=== PATIENT | male | born 1960 ===

== ENCOUNTER → 2023-07-02 11:14 | Outpatient (REF) | payer BC, SELFPAY | LOC: DHCBC HW 11:14 | PROVIDERS: ATTENDING PHYSICIAN Internal Medicine Cardiovascular Disease; FAMILY PHYSICIAN Internal Medicine | DX: I25.10 Atherosclerotic heart disease of native coronary artery without angina pectoris (principal); Z95.3 Presence of xenogenic heart valve | CPT/HCPCS: 93306 ==

== ENCOUNTER 2023-10-16 23:04 | Inpatient (IN) | payer MEDICARE, BC, SELFPAY ==
[2023-10-16 19:22] VITALS: BP 135/89
[2023-10-16 19:38] VITALS: BMI 26.2
--- NOTE | 2023-10-16 19:52 | ED.GENMED ---
History of Present Illness
<JUAN Galeana - Last Filed: 10/16/23 22:23>
General
Chief Complaint: Abdominal Pain
Source: patient
Exam Limitations: none
Time Seen by Provider: 10/16/23 19:41
Travel History
Have you had any contact with someone who has COVID-19?: No
Do you have any symptoms of coronavirus? Fever > 100 degrees, chills, cough, shortness of breath, sore throat, loss of taste or smell, muscle aches, or headache?: No
History of Present Illness
History of Present Illness:
This is a 63 year old male that comes in with c/o abd pain. States that around 3-3:30pm he was driving and he started with abd pain. States that the pain was so bad that he started to Hyperventilate and he had to gizzard puller as he thought he was going
to pass out. States that he went home and laid down and he then had chills for 2 hours. States that the pain was then gone. States that he has chronic back pain and he has lower back pain at this time. States that he did feel SOB earlier and he
did vomit. Denies any fever, chest pain, nausea, diarrhea, headache, dizziness, urinary burning.
Past History
<JUAN Galeana - Last Filed: 10/16/23 22:23>
Past History
ED Past Medical History: CAD, GERD, HTN, Hypercholesterolemia and Other (Low back pain)
ED Past Surgical History: Cardiac (Open heart for valve replacement Pig valve. ), Orthopedic (Right Achilles, Right knee repair X 2, ), Tonsilectomy and Other (Rhinoplasty)
Social History
Tobacco: Non-smoker
Alcohol: Occasional
Personal:
Living: with family
Review of Systems
<JUAN Galeana - Last Filed: 10/16/23 22:23>
Review of Systems
All Other Systems: ROS reviewed and negative except as documented in HPI and ROS
Constitutional: Reports chills; Denies fever
EENT: Reports no symptoms
Respiratory: Reports trouble breathing; Denies cough
Cardiac: Reports no symptoms; Denies chest pain
ABD/GI: Reports abdominal pain and vomiting; Denies nausea or diarrhea
Musculoskeletal: Reports back pain (Low back pain)
Skin: Reports no symptoms
Neurological: Reports no symptoms; Denies dizzy or headache
Psychiatric: Reports no symptoms
Phy Exam
<JUAN Galeana - Last Filed: 10/16/23 22:23>
General Physical Exam
General Presentation: no apparent distress
General age: appears stated age
General Skin: warm and dry
General Habitus: normal
General Mental: alert
General Hydration: appears well hydrated
ENT Exam
ENT Exam: TM's normal, pharynx normal and neck supple
Eye Exam
Eye Exam: EOMI
Cardiovascular Exam
Cardiovascular Exam: regular rate/rhythm, no edema, no murmur and normal peripheral pulses
Pulmonary Exam
Pulmonary Exam: lungs clear, no respiratory distress, no rales, chest non tender, no crackles, no rhonchi, no wheezing and no cough
Gastrointestinal Exam
Gastrointestinal Exam: normal bowel sounds, non tender, soft, no organomegaly, no pulsatile mass and non distended
Musculoskeletal Exam
Musculoskeletal Exam: full ROM and no edema
Skin Exam
Skin Exam: normal color, warm/dry, no rash and no petechia
Psychiatric Exam
Psychiatric Exam: normal mood/affect
Course
<JUAN Galeana - Last Filed: 10/16/23 22:23>
Orders/Labs/Results
Orders:
Orders
10/16/23 19:43
COVID-19 Antigen Urgent
Source: Nasal Swab
Complete Blood Count/With Diff Urgent
Comprehensive Metabolic Panel Urgent
Direct Bilirubin Urgent
Comment: ADD ON
Lactate Level [Lactic Acid] Q4H
Lipase Urgent
Comment: ADD ON
Influenza A+B Rapid Molecular Urgent
ALEXIS Source: Nasal Swab
Specimen Description:
10/16/23 19:50
0.9% Sodium Chloride 1000 ml [Nss] 1,000 ml IV BOLUS
Ketorolac [Toradol] 30 mg IV NOW STA
10/16/23 19:51
CT Abd/pelvis W Iv Cont Urgent
Comment:
Reason For Exam: abd pain
10/16/23 19:53
Blood Culture Q30M
ALEXIS Source: Blood/Venous
Specimen Description:
10/16/23 19:58
Add On- LAB Urgent
Tests Added?: lipase
10/16/23 20:11
Add On- LAB Urgent
Tests Added?: Direct socrates
10/16/23 20:19
Urinalysis Reflex To Culture Urgent
Date Specimen was Collected: 10/16/23
Time Specimen was Collected: 20:18
10/16/23 20:58
US Abdomen Limited Urgent
Comment:
Reason For Exam: Upper abd pain
10/16/23 21:10
Vital Signs- Treatment ONCE
Frequency: Once
10/16/23 21:25
Piperacillin/Tazo 3.375 Gram [Zosyn] 3.375 gram in 50 ml IV NOW
10/16/23 21:56
Blood Culture Q30M
ALEXIS Source: Blood/Venous
Specimen Description:
Abnormal Lab Results
10/16/23 10/16/23
19:43 20:19
WBC 12.8 H 10^3/uL
(4.8-10.8)
RBC 4.36 L 10^6/uL
(4.70-6.10)
MCH 31.4 H pg
(27.0-31.0)
Absolute Neuts (auto) 11.3 H 10^3/uL
(1.4-6.5)
Absolute Lymphs (auto) 0.6 L 10^3/uL
(1.2-3.4)
Absolute Monos (auto) 0.9 H 10^3/uL
(0.1-0.6)
Neutrophils % 88.2 H %
(42.2-75.2)
Lymphocytes % 4.5 L %
(20.5-51.1)
Glucose 163 H mg/dl
(70-99)
Total Bilirubin 2.2 H mg/dl
(0.2-1.3)
Direct Bilirubin 1.3 H mg/dl
(0.0-0.4)
AST 687 H* U/L
(17-59)
ALT 457 H U/L
(0-50)
Alkaline Phosphatase 154 H U/L
(38-126)
Urine Urobilinogen 2+ A
(Neg - 1+)
10/16/23 19:43
10/16/23 19:43
Leukocytosis, Glucose nonfasting. Total socrates elevated. Direct socrates elevation. AST/ALT elevation and alk phos elevation. Urine negative for infection. COVID and Influenza negative. Lactic acid normal at 1.2, Lipase normal at 114, Urine negative for
infection.
Vital Signs
Initial and Last Documented VS:
Initial Vital Signs
Temp Pulse Resp BP Pulse Ox
100.6 F H 92 18 135/89 98
10/16/23 19:22 10/16/23 19:22 10/16/23 19:22 10/16/23 19:22 10/16/23 19:22
Last Documented Vital Signs
Temp Pulse Resp BP Pulse Ox
98.9 F 82 18 131/68 99
10/16/23 21:41 10/16/23 21:41 10/16/23 19:22 10/16/23 21:41 10/16/23 21:41
<Tejinder Joe, DO - Last Filed: 10/16/23 21:12>
Orders/Labs/Results
Orders:
Orders
10/16/23 19:43
COVID-19 Antigen Urgent
Source: Nasal Swab
Complete Blood Count/With Diff Urgent
Comprehensive Metabolic Panel Urgent
Direct Bilirubin Urgent
Comment: ADD ON
Lactate Level [Lactic Acid] Q4H
Lipase Urgent
Comment: ADD ON
Influenza A+B Rapid Molecular Urgent
ALEXIS Source: Nasal Swab
Specimen Description:
10/16/23 19:50
0.9% Sodium Chloride 1000 ml [Nss] 1,000 ml IV BOLUS
Ketorolac [Toradol] 30 mg IV NOW STA
10/16/23 19:51
CT Abd/pelvis W Iv Cont Urgent
Comment:
Reason For Exam: abd pain
10/16/23 19:53
Blood Culture Q30M
ALEXIS Source: Blood/Venous
Specimen Description:
10/16/23 19:58
Add On- LAB Urgent
Tests Added?: lipase
10/16/23 20:11
Add On- LAB Urgent
Tests Added?: Direct socrates
10/16/23 20:19
Urinalysis Reflex To Culture Urgent
Date Specimen was Collected: 10/16/23
Time Specimen was Collected: 20:18
10/16/23 20:58
US Abdomen Limited Urgent
Comment:
Reason For Exam: Upper abd pain
10/16/23 21:10
Vital Signs- Treatment ONCE
Frequency: Once
10/16/23 21:25
Piperacillin/Tazo 3.375 Gram [Zosyn] 3.375 gram in 50 ml IV NOW
10/16/23 21:56
Blood Culture Q30M
AL[facility]IS Source: Blood/Venous
Specimen Description:
Abnormal Lab Results
10/16/23 10/16/23
19:43 20:19
WBC 12.8 H 10^3/uL
(4.8-10.8)
RBC 4.36 L 10^6/uL
(4.70-6.10)
MCH 31.4 H pg
(27.0-31.0)
Absolute Neuts (auto) 11.3 H 10^3/uL
(1.4-6.5)
Absolute Lymphs (auto) 0.6 L 10^3/uL
(1.2-3.4)
Absolute Monos (auto) 0.9 H 10^3/uL
(0.1-0.6)
Neutrophils % 88.2 H %
(42.2-75.2)
Lymphocytes % 4.5 L %
(20.5-51.1)
Glucose 163 H mg/dl
(70-99)
Total Bilirubin 2.2 H mg/dl
(0.2-1.3)
Direct Bilirubin 1.3 H mg/dl
(0.0-0.4)
AST 687 H* U/L
(17-59)
ALT 457 H U/L
(0-50)
Alkaline Phosphatase 154 H U/L
(38-126)
Urine Urobilinogen 2+ A
(Neg - 1+)
10/16/23 19:43
10/16/23 19:43
Vital Signs
Initial and Last Documented VS:
Initial Vital Signs
Temp Pulse Resp BP Pulse Ox
100.6 F H 92 18 135/89 98
10/16/23 19:22 10/16/23 19:22 10/16/23 19:22 10/16/23 19:22 10/16/23 19:22
Last Documented Vital Signs
Temp Pulse Resp BP Pulse Ox
98.9 F 82 18 131/68 99
10/16/23 21:41 10/16/23 21:41 10/16/23 19:22 10/16/23 21:41 10/16/23 21:41
<JUAN Galeana - Last Filed: 10/16/23 22:23>
MDM/Problems Addressed
Differential Diagnosis Includes:
Diverticulitis, colitis, Pancreatitis, UTI
MDM/Problems Addressed:
This is a 63 year old male that comes in with c/o abd pain and then chills. States that this started at 3-3:30pm and he was driving and had to gizzard puller as he started to hyperventilate and thought he was going to pass out.
Will get labs, CT abd, give IV fluids an medicate for his back pain.
Back into see patient. Explained that he would be admitted as his liver enzymes are elevated and the CT shows that he has gallstones with wall thickening. Will start on antibiotics and admit.
Chronic conditions affecting care:
NA
Acute Exacerbation and/or Progression of Chronic Illness:
NA
<JUAN Galeana - Last Filed: 10/16/23 22:23>
*Radiology
Radiology exam reviewed: radiology read reviewed (CT-There is cholelithiasis with mild hazy pericholecystic inflammatory stranding suggesting possible Cholecystitis. Imaging for bowel pathology is limited by the lack of enteric contrast. It there is
clinical suspicion for bowel pathology, this study could be repeated with enteric contrast and 4 ) and other (CT cont-hour delay. Diverticuli are present in the colon US-Cholelithiasis)
*Pulse Oximetry
Patient hypoxic: no
*EKG
Interpreted by ED Provider?: NA
Rate: EKG- N/A
*Press Operator Assistant Interpretation
Rate: Press Operator Assistant- N/A
*Critical Care Note
Total Time (30-74mins, 75-104mins- exclusive of procedures): Not Applicable
ED Attending Note
<JUAN Galeana - Last Filed: 10/16/23 22:23>
-
Portions of this chart may have been created with voice recognition software.� Occasional wrong word or��sound alike� substitutions may have occurred due to the inherent limitations of voice recognition software.
<Tejinder Joe DO - Last Filed: 10/16/23 21:12>
ED Attending Note
Patient seen and examined by attending physician: Yes
I performed the substantive portion of visit, reviewed & personally made and approve the management plan that is documented in note by myself or STEVE.: Yes
ED Attending Note:
63-year-old male who presents with abdominal pain and chills. Found to have abnormal LFTs, leukocytosis and right upper quadrant pain. Concern for ascending cholangitis. CT imaging reviewed by me and suspicious for pericholecystic inflammatory
changes. Await radiology final reading. Exam: Positive Thompson's. No distention. Febrile.
A/P: ascending cholangitis. abx. admit
Discharge Plan
Departure
Patient Disposition: Admit
Date of Disposition: 10/16/23
Time of Disposition: 21:28
Admit to: Med/Surg
Presentation/result/management discussed w/ accepting MD/DO: Hospitalist
Patient with high blood pressure during this ER visit?: Yes
Condition: Good
Covid-19: Not Applicable
Discharge Problem:
Elevated liver enzymes, Cholelithiasis with acute cholecystitis
Prescriptions:
No Action
ibuprofen 800 mg Tablet
800 mg PO HSPRN PRN (Reason: sleep)
tetrahydrozoline [Visine] 0.05 % Drops
2 - 3 drp BOTH EYES DAILYPRN PRN (Reason: allergies)
aspirin 81 mg Tablet,Delayed Release (Dr/Ec)
81 mg PO DAILY
esomeprazole magnesium 40 mg capsule,delayed release(DR/EC)
40 mg PO DAILY
calcium carbonate [Tums] 200 mg calcium (500 mg) Tablet,Chewable
200 - 400 mg PO DAILYPRN PRN (Reason: upset stomach)
metoprolol succinate 25 mg tablet extended release 24 hr
25 mg PO DAILY
rosuvastatin 40 mg tablet
40 mg PO DAILY
Referrals:
Ruthann Luque DO [Family Provider] -
Interventions
Interventions:
*Risk Screen - Suicide Last Done: 10/16/23 20:26
*General Assessment Last Done: 10/16/23 19:22
*Neglect/Abuse Screening Last Done: 10/16/23 20:26
HH-Znjzzz-Mqioqhjdwd Assessment Last Done: 10/16/23 19:47
Discharge Date and Time
Print Language: ITALIAN
[2023-10-16 19:53] LABS: % Basophils 0.2 % (0-2); % Eosinophils 0.2 % (0-6); % Immature Granulocytes 0.2 % (0-0.5); % Lymphocytes 4.5 % (20.5-51.1); % Monocytes 6.7 % (1.7-9.3); % Neutrophils 88.2 % (42.2-75.2); Absolute Lymphocytes 0.6 10^3/uL (1.2-3.4); Absolute Monocytes 0.9 10^3/uL (0.1-0.6); Absolute Neutrophils 11.3 10^3/uL (1.4-6.5); Hematocrit 39.3 % (39.0-52.0); Hemoglobin 13.7 g/dL (13.0-18.0); Mean Corp Hgb Conc. 34.9 g/dL (33.0-37.0); Mean Corpuscular Hgb 31.4 pg (27.0-31.0); Mean Corpuscular Volume 90.1 fL (80.0-94.0); Mean Platelet Volume 9.7 fL (7.4-10.4); Nucleated Red Blood Cells % 0 % (-); Platelet Count 163 10^3/uL (130-400); Red Blood Cell Count 4.36 10^6/uL (4.70-6.10); Red Cell Dist. Width 13.1 % (11.5-14.5); White Blood Cell Count 12.8 10^3/uL (4.8-10.8)
[2023-10-16] MEDS: TORADOL 30 MG IV (19:54)
[2023-10-16] MEDS: NSS 1000 IV ×2 (19:55→23:49)
[2023-10-16 20:07] LABS: Lactic Acid 1.2 mmol/L (0.7-2.0)
[2023-10-16 20:09] LABS: COVID-19 Antigen Negative (Negative)
[2023-10-16 20:10] LABS: ALT (SGPT) 457 U/L (0-50); AST (SGOT) 687 U/L (17-59); Albumin 4.2 g/dl (3.5-5.0); Alkaline Phosphatase 154 U/L (38-126); Blood Urea Nitrogen 18 mg/dl (9-20); Calcium 9.6 mg/dl (8.4-10.2); Carbon Dioxide 28 mmol/L (22-30); Chloride 100 mmol/L (98-107); Estimated Creatinine Clearance 67 ml/min; Glucose 163 mg/dl (70-99); Sodium 136 mmol/L (135-145); Total Bilirubin 2.2 mg/dl (0.2-1.3); Total Protein 7.1 g/dl (6.3-8.2); eGFR > 60.00
[2023-10-16 20:26] LABS: Urine Albumin Trace (Neg - Trace); Urine Bilirubin Negative (Negative); Urine Color Yellow; Urine Glucose Negative (Negative); Urine Ketone Negative (Negative); Urine Leukocyte Negative (Negative); Urine Nitrite Negative (Negative); Urine Occult Blood Negative (Negative); Urine Urobilinogen 2+ (Neg - 1+)
[2023-10-16 20:27] LABS: Urine Character Clear (Clear)
[2023-10-16 20:29] LABS: Direct Bilirubin 1.3 mg/dl (0.0-0.4); Lipase 114 U/L (23-300)
[2023-10-16 21:41] VITALS: BP 131/68
[2023-10-16] MEDS: ZOSYN 50 IV (22:13)
--- NOTE | 2023-10-16 22:57 | HPS.HSE ---
Addendum entered and electronically signed by Brenden Worthington DO 10/16/23 23:19:
Patient seen and examined independently. Agree with findings and plan as set forth by Yana Bains PA-C.
Patient is a 63y M with PMH significant for ASCVD and hypertension who presents to ED complaining of abdominal pain with N/V. Patient states that symptoms started this AM. He reports pain in the RUQ area with 2 episodes of emesis and subjective
chills. He presented for further evaluation and treatment and is noted to have low-grade fever, abnormal LFTs and imaging c/w gallstones.
Ass:
Cholelithiasis and Probable Acute Cholecystitis
ASCVD
Benign Hypertension
Plan:
Admit for further evaluation and treatment.
NPO, IVFs, IV abx, etc.
Surgery evaluation for probable cholecystectomy.
Follow for improvement in LFTs.
Original Note:
Family Physician
-
Family Physician: Ruthann Luque DO
Chief Complaint
-
Abdominal Pain
History of Present Illness
This is a 63 year old male with past medical history of CAD, hypertension and hyperlipidemia who presents to the emergency department with abdominal pain and chills. The patient reports he started experiencing abdominal pain this morning. He reports
his abdominal pain worsened this afternoon and he started experiencing chills, shortness of breath, and vomited twice, prompting him to present to the emergency department. Upon arrival, the patient was found to have a fever of 100.6F. He denies
diarrhea and chest pain. He denies prior similar episodes.
Medical History
Past Medical History
Past Medical History: Reports Other
Additional Past Medical History:
Coronary Artery Disease s/p CABG
Essential Hypertension
Hyperlipidemia
GERD
Past Surgical History: Reports Other
Additional Past Surgical History:
Bioprosthetic Mitral Valve Replacement
CABG
Right Achilles Surgery
Right Knee Repair x 2
Rhinoplasty
Tonsillectomy
Social History
Tobacco: Non-smoker
Alcohol: Occasional
Family History
Family History: Not pertinent
Allergies / Home Medications
Allergies reflects when Allergies were last updated in [facility].
Home Medications with original date entered in [facility]
Allergy/Medication List:
Allergies
Allergy/AdvReac Type Severity Reaction Status Date / Time
No Known Allergies Allergy Unverified 10/16/23 19:26
Home Medications
aspirin 81 mg tablet,delayed release 81 mg PO DAILY 10/16/23
calcium carbonate (Tums) 200 - 400 mg PO DAILYPRN PRN upset stomach 10/16/23
esomeprazole magnesium 40 mg capsule,delayed release 40 mg PO DAILY 10/16/23
ibuprofen 800 mg tablet 800 mg PO HSPRN PRN sleep 10/16/23
metoprolol succinate 25 mg tablet,extended release 24 hr 25 mg PO DAILY 10/16/23
rosuvastatin 40 mg tablet 40 mg PO DAILY 10/16/23
tetrahydrozoline 0.05 % eye drops (Visine) 2 - 3 drp BOTH EYES DAILYPRN PRN allergies 10/16/23
Review of Systems
-
A 12 point ROS was completed and negative except as noted: Yes
Constitutional: Reports Fever and Chills
Respiratory: Denies Cough or Trouble Breathing
Cardiac: Denies Chest Pain or Palpitations
Physical Exam
Vital Signs
Vital Signs
Temp Pulse Resp BP Pulse Ox
98.9 F 82 18 131/68 99
10/16/23 21:41 10/16/23 21:41 10/16/23 19:22 10/16/23 21:41 10/16/23 21:41
Physical Exam
General: Comfortable and Conversant
HEENT: Anicteric and Moist mucous membranes
Respiratory: Clear and Non Labored Respirations
Cardiac: S1/S2 and Regular Rhythm
GI: Soft, Non Distended and Tender (Mild Right Lower Quadrant; Moderate in Right Upper Quadrant with Positive Thompson's Sign)
Musculoskeletal: No Clubbing, No Cyanosis and No Edema
Skin: Warm and Dry
Neuro: Awake, Alert, Oriented and Nonfocal/grossly intact
Laboratory Results
-
10/16/23 19:43
10/16/23 19:43
Laboratory Results
Lactic Acid Cancelled 10/16/23 23:45
Total Bilirubin 2.2 mg/dl (0.2-1.3) H 10/16/23 19:43
AST 687 U/L (17-59) H* 10/16/23 19:43
ALT 457 U/L (0-50) H 10/16/23 19:43
Alkaline Phosphatase 154 U/L (38-126) H 10/16/23 19:43
Lipase 114 U/L (23-300) 10/16/23 19:43
Data Reviewed
-
CT Scan: Report Reviewed by me
Ultrasound: Report Reviewed by me
Lab Data: Labs Reviewed by me
Impression/Plan
-
Sepsis secondary to Acute Cholecystitis
-Consult Surgery
-Continue Zosyn
-Suspect elevated LFTs related to a passed gallstone - Recheck LFTs in AM - Consider GI consult in AM if not trending downward
Coronary Artery Disease s/p CABG
-Hold Aspirin for possible OR
Essential Hypertension
-Continue Metoprolol with hold parameters
Hyperlipidemia
-Hold statin
DVT proph: SCDs
Code Status: Full Code
[2023-10-16] MEDS: DILAUDID 0.5 MG IV (23:00)
[2023-10-16 23:12] VITALS: BP 130/68
[2023-10-16 23:43] VITALS: BP 128/67; BMI 26.2
--- NOTE | 2023-10-17 | PTCARENOTE ---
Received patient via stretcher accompanied by ED RN. Patient ambulated self from stretcher to bed without difficulty. Nursing assessment completed and as documented. Oriented to room/facility, instructed use of call ring and within reach, VSS,
continue with current care plan.
[2023-10-17] MEDS: ZOSYN 50 IV ×4 (03:36→21:28)
[2023-10-17 06:00] VITALS: BMI 26.2
[2023-10-17 06:31] LABS: Hematocrit 36.2 % (39.0-52.0); Hemoglobin 12.6 g/dL (13.0-18.0); Mean Corp Hgb Conc. 34.8 g/dL (33.0-37.0); Mean Corpuscular Hgb 31.7 pg (27.0-31.0); Mean Platelet Volume 10.3 fL (7.4-10.4); Platelet Count 149 10^3/uL (130-400); Red Blood Cell Count 3.98 10^6/uL (4.70-6.10); Red Cell Dist. Width 13.2 % (11.5-14.5); White Blood Cell Count 10.7 10^3/uL (4.8-10.8)
[2023-10-17 06:58] LABS: ALT (SGPT) 566 U/L (0-50); AST (SGOT) 527 U/L (17-59); Albumin 3.3 g/dl (3.5-5.0); Alkaline Phosphatase 147 U/L (38-126); Blood Urea Nitrogen 16 mg/dl (9-20); Calcium 8.5 mg/dl (8.4-10.2); Carbon Dioxide 26 mmol/L (22-30); Chloride 104 mmol/L (98-107); Estimated Creatinine Clearance 61 ml/min; Glucose 89 mg/dl (70-99); Sodium 137 mmol/L (135-145); Total Bilirubin 4.2 mg/dl (0.2-1.3); Total Protein 5.9 g/dl (6.3-8.2); eGFR > 60.00
[2023-10-17 07:00] VITALS: BP 136/85
--- NOTE | 2023-10-17 07:43 | CON.GS ---
Consultation
-
Reason for Consultation: Abdominal pain, elevated LFTs
Medical History
-
Chief Complaint: Abdominal pain
History of Present Illness:
Patient is a 63-year-old male who was in his usual baseline state of health until yesterday when he developed the acute onset of upper abdominal pain with nausea and anorexia. He induced vomiting once but his symptoms persisted prompting emergency
department evaluation. Shortly after presenting to the emergency department his pain improved but it did return again mildly overnight. It was relieved with narcotics.
Similar episode about a year ago but he waited it out at home and his symptoms improved after 2 to 3 days.
Past Medical History
Past Medical History: Other (CAD, hypertension, GERD, hypercholesterolemia)
Past Surgical History: Other (Repair of Achilles tendon, CABG with bioprosthetic mitral valve replacement)
Social History
Tobacco: Non-Smoker
Alcohol: Occasional
Family History
Family History: Other (First-degree relatives have had cholecystectomy for gallstone related disease)
Allergies / Home Medications
Allergy/AdvReac Type Severity Reaction Status Date / Time
No Known Allergies Allergy Unverified 10/16/23 19:26
�Medication �Instructions �Recorded �Confirmed �Type
aspirin 81 mg tablet,delayed 81 mg PO DAILY Blood Clot 10/16/23 10/16/23 History
release Prevention/Tx
calcium carbonate (Tums) 200 - 400 mg PO DAILYPRN PRN upset 10/16/23 10/16/23 History
stomach
esomeprazole magnesium 40 mg 40 mg PO DAILY Gastrointestinal 10/16/23 10/16/23 History
capsule,delayed release Issue
ibuprofen 800 mg tablet 800 mg PO HSPRN PRN sleep 10/16/23 10/16/23 History
metoprolol succinate 25 mg 25 mg PO DAILY Heart Failure 10/16/23 10/16/23 History
tablet,extended release 24 hr
rosuvastatin 40 mg tablet 40 mg PO DAILY Gastrointestinal 10/16/23 10/16/23 History
Issue
tetrahydrozoline 0.05 % eye drops 2 - 3 drp BOTH EYES DAILYPRN PRN 10/16/23 10/16/23 History
(Visine) allergies
Review of Systems
-
History Source: Patient
All other systems: Negative unless noted
A 10 point review of systems was completed, and was negative except as per HPI.
Physical Exam
Vital Signs
Temp Pulse Resp BP Pulse Ox
99.4 F 74 16 128/67 96
10/16/23 23:43 10/16/23 23:43 10/16/23 23:43 10/16/23 23:43 10/17/23 00:03
10/16/23 10/17/23 10/18/23
06:59 06:59 06:59
Actual Weight 80.467 kg
Body Mass Index (BMI) 26.2
Lab Results
10/17/23 05:36
10/17/23 05:36
WBC 10.7 10^3/uL (4.8-10.8) 10/17/23 05:36
Hgb 12.6 g/dL (13.0-18.0) L 10/17/23 05:36
Hct 36.2 % (39.0-52.0) L 10/17/23 05:36
Plt Count 149 10^3/uL (130-400) 10/17/23 05:36
Abs Immat Gran (auto) 0.0 10^3/uL (0-0.05) 10/16/23 19:43
Neutrophils % 88.2 % (42.2-75.2) H 10/16/23 19:43
Physical Exam
General: Well Developed, Well Nourished, No Apparent Distress, Comfortable and Other (Sleeping in hospital bed but easily awoke for evaluation/examination)
HEENT: Normocephalic, Anicteric and Moist Mucous Membranes
Respiratory: Non Labored Respirations
Cardiac: Regular Rhythm
GI: Soft, Non Distended, Normal Bowel Sounds and Tender (Slight epigastric tenderness and right upper quadrant tenderness but no rebound rigidity or guarding. Negative Thompson sign.)
Skin: Warm
Neuro: AO x 3
Psych: Calm
Data Reviewed
-
CT Scan: Image Personally Visualized and interpreted and Discussed with Patient
Ultrasound: Image Personally Visualized and interpreted and Discussed with Patient
Labs: Labs Reviewed by me and Discussed with Patient
Assessment / Plan
-
Assessment: 63-year-old male with gallstones presenting with acute biliary colic likely secondary to symptomatic cholelithiasis versus choledocholithiasis.
Ultrasound imaging with numerous layering small gallstones. No significant gallbladder distention or wall thickening. No identified pericholecystic edema. No biliary ductal dilation, common bile duct [address] imaging similarly shows a
physiologically distended gallbladder with possible slight surrounding inflammatory changes within the soft tissue planes around the gallbladder.
White blood cell count normal this a.m., chemistries notable for further elevation of the total bilirubin up to 4.2 and continued elevation of AST ALT and alkaline phosphatase.
Plan: Recommended obtaining MRI to evaluate for choledocholithiasis
If MRI positive would subsequently request GI evaluation for ERCP
If MRI clears biliary tree then patient has been added onto OR schedule for tomorrow 10/18/2023 for laparoscopic cholecystectomy with intraoperative cholangiogram.
Continue Zosyn for empiric biliary coverage
Okay for clear liquid diet today
Reviewed with patient surgical treatment plan. Any questions were addressed.
[2023-10-17] MEDS: PROTONIX 40 MG PO (08:09)
[2023-10-17] MEDS: TOPROL XL 25 MG PO (08:09)
[2023-10-17] MEDS: NSS 1000 IV ×2 (11:02→21:28)
[2023-10-17] MEDS: TYLENOL 650 MG PO ×3 (11:48→21:31)
--- NOTE | 2023-10-17 12:29 | W.PN.HOSP.TC ---
Today's Communication/Plan
-
see outlined plan
Assessment / Plan
Assessment / Plan
Assessment:
Sepsis POA (leukocytosis, fever, cholecystitis)
Acute calculus cholecystitis with elevated LFTs
- MRCP: Cholelithiasis. Gallbladder wall is top normal in thickness. There is trace pericholecystic fluid. Findings suggest early acute cholecystitis
- GS consulting; plan for lap christy tomorrow with IOC
- continue pain control, anti-emetics
- continue Zosyn, day 1
- diet: clears, but NPO p MN
- follow LFTs
Coronary Artery Disease s/p CABG
- hold Aspirin for possible OR
- continue Metoprolol
Essential Hypertension
- continue Metoprolol with hold parameters
Hyperlipidemia
- Hold statin
DVT proph: SCDs
Code Status: Code
Anticipated Discharge: > 48 hours
Subjective/Interval History
-
Date of Service: October 17, 2023
Febrile
some RUQ pain
feels tired
Objective Data
-
Labs:
Laboratory Results
10/17/23
05:36
WBC 10.7
Hgb 12.6 L
Hct 36.2 L
Plt Count 149
Sodium 137
Potassium 4.0
Chloride 104
Carbon Dioxide 26
BUN 16
Creatinine 1.2
Glucose 89
Calcium 8.5
Total Bilirubin 4.2 H D
AST 527 H*
ALT 566 H*
Alkaline Phosphatase 147 H
Vital Signs:
Vital Signs
Temp Pulse Resp BP Pulse Ox
101.7 F H 77 16 136/85 95
10/17/23 11:45 10/17/23 07:00 10/17/23 07:00 10/17/23 07:00 10/17/23 07:00
I&O
10/16/23 10/17/23 10/18/23
06:59 06:59 06:59
Intake Total 990 / 990
Balance 990 / 990
Physical Exam
-
General: No Apparent Distress and Other (tired appearing)
HEENT: Normocephalic and Atraumatic
Respiratory: Negative Wheezes
Cardiac: Regular Rhythm and S1/S2
GI: Soft and Nontender
Musculoskeletal: No Edema
Neuro: AO x 3
Hematologic / Lymphatic: No Lymphadenopathy
Psych: Calm
Data Reviewed
-
Total Time Spent with Patient (in minutes): 42
Labs: Labs Reviewed by me
[2023-10-17 15:00] VITALS: BP 138/71
--- NOTE | 2023-10-17 16:14 | CM ---
Initial assessment completed with patient and . Their daughter, Airam and 2 grandchildren (2 y/o and 9 days old) live with them in a 2 story home with basement, B/B on . No DME or in-home services. C[employer] WR[employer]PER patient was independent and drove. No
psychiatric hospitalizations. Pharmacy is [facility] in [place] and PCP is Dr. Ruthann Luque. Discharge Plan of Care: Anticipate OR on 10/18/23. Will follow. Anticipate home with no needs if lap christy.
[2023-10-17] MEDS: TORADOL 15 MG IV (18:10)
--- NOTE | 2023-10-17 18:22 | PTCARENOTE ---
Pt with elevated temps throughout shift. Tylenol effective at times. MD aware with new order for cooling blanket. Pt stated that he rather try Toradol to bring down his fever since it has worked in the past, he also stated experiencing radiating
pain from RLQ to back. Temp checked prior to Toradol administration 100.1 Pt states 'feeling better and not as tired'. Cooling blanket in room if needed, will pass info onto next shift.
[2023-10-17 23:50] VITALS: BP 130/64
[2023-10-18] VITALS (11 sets, daily range): BP systolic 119–173; BP diastolic 52–85; BMI 26.6
[2023-10-18] MEDS: ZOSYN 50 IV ×3 (03:19→22:23)
[2023-10-18 06:26] LABS: % Basophils 0.2 % (0-2); % Eosinophils 7.7 % (0-6); % Immature Granulocytes 0.2 % (0-0.5); % Monocytes 7.8 % (1.7-9.3); % Neutrophils 79.1 % (42.2-75.2); Absolute Eosinophils 0.5 10^3/uL (0-0.7); Absolute Lymphocytes 0.3 10^3/uL (1.2-3.4); Absolute Monocytes 0.5 10^3/uL (0.1-0.6); Absolute Neutrophils 5.3 10^3/uL (1.4-6.5); Hemoglobin 12.6 g/dL (13.0-18.0); Mean Corp Hgb Conc. 33.2 g/dL (33.0-37.0); Mean Corpuscular Hgb 30.8 pg (27.0-31.0); Mean Corpuscular Volume 92.9 fL (80.0-94.0); Mean Platelet Volume 10.1 fL (7.4-10.4); Nucleated Red Blood Cells % 0 % (-); Platelet Count 136 10^3/uL (130-400); Red Blood Cell Count 4.09 10^6/uL (4.70-6.10); White Blood Cell Count 6.7 10^3/uL (4.8-10.8)
[2023-10-18 07:04] LABS: ALT (SGPT) 470 U/L (0-50); AST (SGOT) 302 U/L (17-59); Albumin 3.3 g/dl (3.5-5.0); Alkaline Phosphatase 160 U/L (38-126); Blood Urea Nitrogen 11 mg/dl (9-20); Calcium 8.7 mg/dl (8.4-10.2); Carbon Dioxide 22 mmol/L (22-30); Chloride 106 mmol/L (98-107); Estimated Creatinine Clearance 67 ml/min; Glucose 108 mg/dl (70-99); Potassium 3.7 mmol/L (3.5-5.1); Sodium 136 mmol/L (135-145); Total Bilirubin 3.9 mg/dl (0.2-1.3); Total Protein 5.9 g/dl (6.3-8.2); eGFR > 60.00
--- NOTE | 2023-10-18 08:24 | W.PN.HOSP.TC ---
Today's Communication/Plan
-
NPO for Lap christy today
continue IVF, IV Zosyn
Assessment / Plan
Assessment / Plan
Assessment:
Sepsis POA (leukocytosis, fever, cholecystitis)
Acute calculus cholecystitis with elevated LFTs
- MRCP: Cholelithiasis. Gallbladder wall is top normal in thickness. There is trace pericholecystic fluid. Findings suggest early acute cholecystitis
- GS consulting; plan for lap christy today with IOC
- continue pain control, anti-emetics
- continue Zosyn, day 2
- follow cultures
- diet: per GS post-op
- follow LFTs which are improving
Coronary Artery Disease s/p CABG
- hold Aspirin for OR
- continue Metoprolol
Essential Hypertension
- continue Metoprolol with hold parameters
Hyperlipidemia
- Hold statin
DVT proph: SCDs
Code Status: Code
Anticipated Discharge: 24 - 48 hours
Subjective/Interval History
-
Date of Service: October 18, 2023
fevers subsided
pain stable
no nausea/vomiting
Objective Data
-
Labs:
Laboratory Results
10/18/23
05:51
WBC 6.7
Hgb 12.6 L
Hct 38.0 L
Plt Count 136
Sodium 136
Potassium 3.7
Chloride 106
Carbon Dioxide 22
BUN 11
Creatinine 1.1
Glucose 108 H
Calcium 8.7
Total Bilirubin 3.9 H
AST 302 H
ALT 470 H
Alkaline Phosphatase 160 H
Vital Signs:
Vital Signs
Temp Pulse Resp BP Pulse Ox
99.9 F 68 16 130/64 94
10/18/23 05:34 10/17/23 23:50 10/17/23 23:50 10/17/23 23:50 10/18/23 00:58
I&O
10/17/23 10/18/23 10/19/23
06:59 06:59 06:59
Intake Total 990 / 990 3190 / 3190
Balance 990 / 990 3190 / 3190
Physical Exam
-
General: No Apparent Distress
HEENT: Normocephalic and Atraumatic
Respiratory: Negative Wheezes
Cardiac: Regular Rhythm and S1/S2
GI: Tender (RUQ)
Genito-urinary: No Costovertebral Tender
Musculoskeletal: No Edema
Neuro: AO x 3
Hematologic / Lymphatic: No Lymphadenopathy
Psych: Calm
Data Reviewed
-
Total Time Spent with Patient (in minutes): 47
Labs: Labs Reviewed by me
[2023-10-18] MEDS: NSS 1000 IV (08:47)
[2023-10-18] MEDS: TOPROL XL 25 MG PO (08:48)
[2023-10-18] MEDS: PROTONIX 40 MG PO (08:48)
--- NOTE | 2023-10-18 10:02 | W.SUR.PREOP ---
Pre-Operative Surgical Note
-
I have examined this patient prior to the performance of the scheduled procedure.
The patient's condition is unchanged from the time of the current History and
Physical and the patient is able to undergo the scheduled procedure.
[2023-10-18] MEDS: ZOSYN IV (10:31)
--- NOTE | 2023-10-18 11:51 | PTCARENOTE ---
pt npo this morning prior to going to OR at 0915. pt sent with IVF going through his R forearm, chart, and SCDS. pt to return to 2120 post procedure.
--- NOTE | 2023-10-18 11:56 | W.IMMPOSTOP ---
Addendum entered and electronically signed by Nirav Cheema MD 10/18/23 12:10:
#[id number]
Original Note:
Surgical Immed Post Op Note
-
Primary Surgeon: Deni
Assisting Surgeon: Irma MEZA
Pre-op Diagnosis: Acute calculus cholecystitis
Post-op Diagnosis: Acute on chronic calculus cholecystitis
Procedure Performed: Laparoscopic cholecystectomy with intraoperative cholangiogram
Anesthesia Type: GETA +0.25% Marcaine
Specimen / Cultures: Gallbladder
Estimated Blood Loss: 10 mL
Complications: None immediate
Operative Findings: Gallbladder completely encased within omental adhesions consistent with history of chronic calculus cholecystitis. Distended and edematous gallbladder consistent with acute calculus cholecystitis. Cystic duct and artery
individually identified through critical view of safety and controlled with clips. Intraoperative cholangiogram performed confirming biliary anatomy and no evidence of choledocholithiasis or bile duct abnormality. Gallbladder removed intact and
extracted at epigastric port site. Incidental finding bilateral inguinal hernias, indirect right side slightly larger than left.
Plan: Continue routine postoperative care with diet advancement as tolerated, antibiotics at least overnight given fevers yesterday but if blood cultures remain negative would not need oral antibiotics on discharge.
Patient's updated via phone call postoperatively
--- NOTE | 2023-10-18 14:18 | CM ---
Intraop cholangiogram and lap christy on this date. Anticipate no needs at discharge. Will continue to follow medical progression.
[2023-10-18] MEDS: NSS IV (18:08)
[2023-10-18] MEDS: TORADOL 10 MG IV (20:58)
[2023-10-19 03:26] VITALS: BP 143/93
[2023-10-19] MEDS: ZOSYN 50 IV ×2 (03:58→09:05)
[2023-10-19] MEDS: TYLENOL 650 MG PO ×2 (04:09→12:08)
[2023-10-19 05:25] VITALS: BMI 27.2
[2023-10-19 07:00] VITALS: BP 138/83
[2023-10-19 08:12] LABS: % Basophils 0.2 % (0-2); % Eosinophils 4.5 % (0-6); % Immature Granulocytes 0.3 % (0-0.5); % Lymphocytes 7.7 % (20.5-51.1); % Monocytes 8.8 % (1.7-9.3); % Neutrophils 78.5 % (42.2-75.2); Absolute Eosinophils 0.4 10^3/uL (0-0.7); Absolute Lymphocytes 0.7 10^3/uL (1.2-3.4); Absolute Monocytes 0.8 10^3/uL (0.1-0.6); Absolute Neutrophils 6.7 10^3/uL (1.4-6.5); Hematocrit 34.2 % (39.0-52.0); Hemoglobin 11.6 g/dL (13.0-18.0); Mean Corp Hgb Conc. 33.9 g/dL (33.0-37.0); Mean Corpuscular Hgb 31.4 pg (27.0-31.0); Mean Corpuscular Volume 92.4 fL (80.0-94.0); Mean Platelet Volume 10.5 fL (7.4-10.4); Nucleated Red Blood Cells % 0 % (-); Platelet Count 115 10^3/uL (130-400); Red Cell Dist. Width 12.5 % (11.5-14.5); White Blood Cell Count 8.6 10^3/uL (4.8-10.8)
[2023-10-19 08:30] LABS: ALT (SGPT) 363 U/L (0-50); AST (SGOT) 164 U/L (17-59); Alkaline Phosphatase 146 U/L (38-126); Blood Urea Nitrogen 12 mg/dl (9-20); Calcium 8.7 mg/dl (8.4-10.2); Carbon Dioxide 25 mmol/L (22-30); Chloride 106 mmol/L (98-107); Estimated Creatinine Clearance 74 ml/min; Glucose 126 mg/dl (70-99); Potassium 4.1 mmol/L (3.5-5.1); Sodium 136 mmol/L (135-145); Total Bilirubin 1.6 mg/dl (0.2-1.3); Total Protein 5.5 g/dl (6.3-8.2); eGFR > 60.00
[2023-10-19] MEDS: PROTONIX 40 MG PO (09:05)
[2023-10-19 09:11] VITALS: BP 158/82
[2023-10-19] MEDS: TOPROL XL PO (09:11)
--- NOTE | 2023-10-19 11:18 | W.PN.GS2 ---
Addendum entered and electronically signed by Rufino Ramcahandran MD 10/19/23 14:40:
I saw and examined the patient.
The SENIOR REACTOR OPERATOR's note was reviewed and I agree with the note.
Comment:
Overall, doing well. Tolerating diet. Pain controlled. Having bowel function.
AFVSS NAD, +s1/s2, no respiratory distress, abd soft/nondistended/appropriately tender, no r/g, incisions well-approximated without signs of infection
WBC 8.6, Hb 11.6 from 12.6, LFTs and T. bili downtrending
�Continue low-fat diet
�Continue pain control with Tylenol and Dilaudid as needed
�No further antibiotics
-OOB/IS, ambulate BID
-Dispo-okay for DC today
Original Note:
Today's Communication / Plan
-
Dispo planning
Assessment / Plan
-
63 yo male with ACC now POD #1 lap christy
AFVSS (mild bradycardia)
No leukocytosis. LFT's returning to baseline
Doing well from surgical standpoint
--continue LFD
--PO analgesics prn
--Ok for d/c from surgical standpoint. D/c instructions updated.
--No need for further abx upon d/c
Subjective Data
-
Date of Service: October 19, 2023
Patient seen and evaluated at bedside. Denies n/v. Tolerating diet. Minimal post operative discomfort. Reviewed post op teaching.
Objective Data
-
Intake and Output
10/18/23 10/19/23 10/20/23
06:59 06:59 06:59
Intake Total 3190 / 3190 960 / 960
Balance 3190 / 3190 960 / 960
Intake:
Oral fluids 690 / 690 510 / 510
IV fluids (Total) 2400 / 2400 250 / 250
Normosol 150 / 150
IV piggybacks 100 / 100 200 / 200
Other:
Number of approximated MODERATE 3 4
amounts of urine
Vital Signs
Temp Pulse Resp BP Pulse Ox
97.9 F 53 16 158/82 97
10/19/23 07:00 10/19/23 09:11 10/19/23 07:00 10/19/23 09:11 10/19/23 09:22
Lab Results
10/19/23 07:33
10/19/23 07:33
Calcium 8.7 mg/dl (8.4-10.2) 10/19/23 07:33
Total Bilirubin 1.6 mg/dl (0.2-1.3) H D 10/19/23 07:33
Direct Bilirubin 1.3 mg/dl (0.0-0.4) H 10/16/23 19:43
AST 164 U/L (17-59) H 10/19/23 07:33
ALT 363 U/L (0-50) H 10/19/23 07:33
Alkaline Phosphatase 146 U/L (38-126) H 10/19/23 07:33
Total Protein 5.5 g/dl (6.3-8.2) L 10/19/23 07:33
Albumin 3.0 g/dl (3.5-5.0) L 10/19/23 07:33
Physical Exam
-
NAD
ABD soft, mild incisional tenderness, ND, SENIOR REACTOR OPERATOR
Incisions well approximated with intact glue
[2023-10-19 11:53] VITALS: BP 149/80
[2023-10-19] MEDS: TOPROL XL 25 MG PO (12:29)
--- NOTE | 2023-10-19 13:01 | W.PN.HOSP.TC ---
Today's Communication/Plan
-
dc home
Assessment / Plan
Assessment / Plan
Assessment:
Sepsis POA (leukocytosis, fever, cholecystitis)
Acute calculus cholecystitis with elevated LFTs
- MRCP: Cholelithiasis. Gallbladder wall is top normal in thickness. There is trace pericholecystic fluid. Findings suggest early acute cholecystitis
- s/p lap christy 10/17 with negative IOC
- continue pain control at discharge
- no Abx at dc per GS
- OP f/u in 2 weeks
- diet: LFD
Coronary Artery Disease s/p CABG
- continue Aspirin
- continue Metoprolol
Essential Hypertension
- continue Metoprolol with hold parameters
Hyperlipidemia
- continue statin
DVT proph: SCDs
Code Status: Code
More than 30 minutes spent in discharge including
Final examination of the patient
Summarizing hospital stay
Instructions for continuing care to all relevant caregivers
Preparation of discharge records, prescriptions, and referral forms
Total time spent (in minutes):41
Anticipated Discharge: Today
Subjective/Interval History
-
Date of Service: October 19, 2023
Denies n/v. Tolerating diet. Minimal post operative discomfort
Objective Data
-
Labs:
Laboratory Results
10/19/23
07:33
WBC 8.6
Hgb 11.6 L
Hct 34.2 L
Plt Count 115 L
Sodium 136
Potassium 4.1
Chloride 106
Carbon Dioxide 25
BUN 12
Creatinine 1.0
Glucose 126 H
Calcium 8.7
Total Bilirubin 1.6 H D
AST 164 H
ALT 363 H
Alkaline Phosphatase 146 H
Vital Signs:
Vital Signs
Temp Pulse Resp BP Pulse Ox
98 F 56 14 149/80 96
10/19/23 11:53 10/19/23 12:29 10/19/23 11:53 10/19/23 12:29 10/19/23 11:53
I&O
10/18/23 10/19/23 10/20/23
06:59 06:59 06:59
Intake Total 3190 / 3190 960 / 960
Balance 3190 / 3190 960 / 960
Physical Exam
-
General: No Apparent Distress
HEENT: Normocephalic and Atraumatic
Respiratory: Negative Wheezes
Cardiac: Regular Rhythm and S1/S2
GI: Soft
Musculoskeletal: No Edema
Neuro: AO x 3
Hematologic / Lymphatic: No Lymphadenopathy
Psych: Calm
Data Reviewed
-
Total Time Spent with Patient (in minutes): 41
Labs: Labs Reviewed by me
--- NOTE | 2023-10-19 13:09 | W.DS.TRANS ---
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
-
Discharge Instructions:
Discharge Diagnosis/Procedures acute calculous cholecystitis s/p lap christy 10/17
Diet Low Fat
Activity No strenuous activity
Bathing Restrictions OK to Shower
Instructions:
Stand-Alone Forms:
Changes to Home Medications: No
Discharge Medications:
DC Medications w/original date entered in [facility]
aspirin 81 mg tablet,delayed release 81 mg PO DAILY Blood Clot Prevention/Tx 10/16/23
esomeprazole magnesium 40 mg capsule,delayed release 40 mg PO DAILY Gastrointestinal Issue 10/16/23
metoprolol succinate 25 mg tablet,extended release 24 hr 25 mg PO DAILY Heart Failure 10/16/23
rosuvastatin 40 mg tablet 40 mg PO DAILY Gastrointestinal Issue 10/16/23
hydrocodone 5 mg-acetaminophen 325 mg tablet 1 tab PO Q6H PRN moderate to severe pain #10 tabs 10/19/23
Home Medication Changes
Pending Results: No
Total time spent discharging patient (in min): 41
--- NOTE | 2023-10-19 14:56 | PTCARENOTE ---
Patient discharged home. This RN removed patient's IV and reviewed discharge instructions/medications with patient who verbalized understanding. Patient dressed and gathered belongings in room independently. Patient being transported home by spouse,
taken down to spouse's car at main lobby via staff escort and wheelchair.
--- NOTE | 2023-10-20 07:18 | CM ---
met with yue hernadez 10/19/23.patient is sp lap christy.he is stable or dc home with no needs.
== END 2023-10-19 14:24 | disposition home or self-care (01) | DRG 854 ==
LOC: 2 NORTH 23:04
PROVIDERS: Clinical Nurse Specialist Family Health; Emergency Medicine; Physician Assistant Medical; Radiology Diagnostic Radiology; ADMITTING PHYSICIAN Hospitalist; ATTENDING PHYSICIAN Internal Medicine; CONSULT PHYSICIAN Surgery; EMERGENCY PHYSICIAN Emergency Medicine; FAMILY PHYSICIAN Internal Medicine
PROC: BF141ZZ Fluoroscopy of Gallbladder, Bile Ducts and Pancreatic Ducts using Low Osmolar Contrast (ICD-10-PCS; 2023-10-18)
PROC: 0FT44ZZ Resection of Gallbladder, Percutaneous Endoscopic Approach (ICD-10-PCS; 2023-10-18)
DX: A41.9 Sepsis, unspecified organism (principal); K80.12 Calculus of gallbladder with acute and chronic cholecystitis without obstruction; G89.29 Other chronic pain; M54.50 Low back pain, unspecified; I25.10 Atherosclerotic heart disease of native coronary artery without angina pectoris; K21.9 Gastro-esophageal reflux disease without esophagitis; I10 Essential (primary) hypertension; R74.8 Abnormal levels of other serum enzymes; E78.5 Hyperlipidemia, unspecified; K66.0 Peritoneal adhesions (postprocedural) (postinfection); E78.00 Pure hypercholesterolemia, unspecified; Z95.3 Presence of xenogenic heart valve; Z79.82 Long term (current) use of aspirin; Z11.52 Encounter for screening for COVID-19; Z95.1 Presence of aortocoronary bypass graft
CPT/HCPCS: 88304; 74177; 74181; 74300; 76000; 76705; 80053; 81003; 82248; 83605; 83690; 85025; 85027; 87040; 87502; 87811; 93005; 96361; 96365; 96375; 99285; Q9967

== ENCOUNTER → 2024-08-07 11:33 | Outpatient (REF) | payer MEDICARE, BC, SELFPAY | LOC: HWRCS 11:33 | PROVIDERS: ATTENDING PHYSICIAN Internal Medicine Cardiovascular Disease; FAMILY PHYSICIAN Internal Medicine | DX: Z95.3 Presence of xenogenic heart valve (principal) | CPT/HCPCS: 93306 ==